=== PATIENT | male | born 1995 | race African-American/Black ===

== ENCOUNTER 2023-06-30 18:45 | Emergency (ER) | payer BC, SELFPAY ==
[2023-06-30 18:54] VITALS: BP 115/60
[2023-06-30 19:28] LABS: % Basophils 0.4 % (0-2); % Eosinophils 0.9 % (0-6); % Immature Granulocytes 0.1 % (0-0.5); % Lymphocytes 47.1 % (20.5-51.1); % Monocytes 8.4 % (1.7-9.3); % Neutrophils 43.1 % (42.2-75.2); Absolute Eosinophils 0.1 10^3/uL (0-0.7); Absolute Lymphocytes 4.4 10^3/uL (1.2-3.4); Absolute Monocytes 0.8 10^3/uL (0.1-0.6); Hematocrit 40.9 % (39.0-52.0); Hemoglobin 14.2 g/dL (13.0-18.0); Mean Corp Hgb Conc. 34.7 g/dL (33.0-37.0); Mean Corpuscular Hgb 30.1 pg (27.0-31.0); Mean Corpuscular Volume 86.7 fL (80.0-94.0); Nucleated Red Blood Cells % 0 % (-); Platelet Count 283 10^3/uL (130-400); Red Blood Cell Count 4.72 10^6/uL (4.70-6.10); Red Cell Dist. Width 12.4 % (11.5-14.5); White Blood Cell Count 9.3 10^3/uL (4.8-10.8)
[2023-06-30 19:43] LABS: ALT (SGPT) 31 U/L (0-50); AST (SGOT) 40 U/L (17-59); Albumin 4.3 g/dl (3.5-5.0); Alkaline Phosphatase 65 U/L (38-126); Blood Urea Nitrogen 10 mg/dl (9-20); Calcium 9.7 mg/dl (8.4-10.2); Carbon Dioxide 29 mmol/L (22-30); Chloride 99 mmol/L (98-107); Glucose 84 mg/dl (70-99); Potassium 3.8 mmol/L (3.5-5.1); Sodium 139 mmol/L (135-145); Total Bilirubin 0.7 mg/dl (0.2-1.3); Total Protein 7.8 g/dl (6.3-8.2); eGFR > 60.00
[2023-06-30 19:52] LABS: Troponin I < 0.012 ng/ml
[2023-06-30 21:53] VITALS: BP 109/73
--- NOTE | 2023-06-30 22:24 | ED.GENMED ---
History of Present Illness
General
Chief Complaint: Cardiac Symptoms
Source: patient and records (records from recent urgent care visit)
Exam Limitations: none
Time Seen by Provider: 06/30/23 22:03
Nursing documentation reviewed up to this point in time: agreed with
Travel History
Have you had any contact with someone who has COVID-19?: No
Do you have any symptoms of coronavirus? Fever > 100 degrees, chills, cough, shortness of breath, sore throat, loss of taste or smell, muscle aches, or headache?: No
History of Present Illness
History of Present Illness:
This is a 27-year-old male with no significant past medical history complains of sharp, stabbing pinpoint right anterior chest pain that began this afternoon around 12 noon. No insightful injury. Right sided chest pain is worse with palpation,
somewhat worse with deep breath. He denies cough nor shortness of breath, no fevers or chills, no nausea nor vomiting, no radiation of the pain, no palpitations, no dizziness or lightheadedness.
He does note somewhat similar chest pain occurring approximately 10 years ago. Resolved after a few days.
He was evaluated at urgent care today, had chest x-ray, EKG performed and was sent to the ED for further evaluation after discovering EKG showed right bundle branch block. Patient has had no previous EKGs.
He was given 4 chewable low-dose aspirin at urgent care and does note mild to moderate improvement in pain.
He states his mother follows with a operations section manager for some unknown cardiac issue but he does not believe there is a family history of coronary artery disease, no family history of previous MIs.
No family history of sudden cardiac .
He takes no medicines on a daily basis.
No recent travel. He denies leg pain or swelling.
No formal exercise but he does remain active on a daily basis and states he walks at least 10,000 steps per day without symptomatology and has had no increase in chest pain nor shortness of breath with activity today.
Past History
Past History
ED Past Medical History: None
ED Past Surgical History: None
Social History
Tobacco: Vaping (Vapes nicotine occasionally)
Alcohol: None
Drug: None
Personal: Single
Living: with family
Employment: Employed
Family History
Family History: Negative Early CAD or Sudden
Phy Exam
Physical Exam
Physical Exam:
GENERAL: 27-year-old male appears his stated age, bright and alert, pleasant, appears in no acute distress. Easily communicative. Vital signs within normal limits.
EYE: anicteric
NECK: Supple, nontender, no meningismus, no significant adenopathy.
ENT: oral mucosa is moist. No rhinorrhea.
CARDIAC: Regular rate and rhythm. no murmur. No rub. There is focal pinpoint tenderness right parasternal region between fourth and fifth and fifth and sixth intercostal space. Palpation exactly reproduces patient's pain complaint. There is no
crepitus nor palpable bony abnormality.
LUNGS: Clear breath sounds bilaterally, no acute respiratory distress, no wheezes/rales/rhonchi
ABDOMEN: Soft, nondistended, without focal tenderness, no r/g, no cvat. normoactive BS.
NEUROLOGICAL: Alert and oriented x3, no focal neuro deficits. Gait is patel and steady.
SKIN: Warm and dry, normal color, skin intact. No rash.
MUSCULOSKELETAL: No C/C/E. peripheral pulses are full and equal b/l. No palpable tenderness.
PSYCH: Normal and appropriate interaction.
Scores
PE Wells Score
Symptoms of DVT: No
No alternative diagnosis better explains the illness: No
Tachycardia with pulse > 100: No
Immobilization (>=3 days) or surgery within previous 4 weeks: No
Prior history of DVT or pulmonary embolism: No
Presence of hemoptysis: No
Presence of malignancy: No
Pulmonary Embolism Risk Score: 0
Probability of PE: Pt is low risk
PERC Rule Criteria
Age <50 years: Yes
HR <100 bpm: Yes
Room air oxygen sat >94%: Yes
History of DVT or PE: No
Recent trauma or surgery: No
Hemoptysis: No
Exogenous estrogen: No
Clinical signs suggestive of DVT: No
: No
Considered low risk for PE: Yes
PERC Score: 0
PE can be excluded by PERC: Yes
Course
Orders/Labs/Results
Orders:
Orders
06/30/23 18:57
Electrocardiogram (*1) Urgent
Reason for Study: Chest Pain
06/30/23 18:58
EKG- Treatment ONCE
06/30/23 19:14
Complete Blood Count/With Diff Urgent
Comprehensive Metabolic Panel Urgent
Troponin I Urgent
06/30/23 22:44
Ibuprofen [Motrin] 600 mg PO NOW STA
Abnormal Lab Results
06/30/23
19:14
Absolute Lymphs (auto) 4.4 H 10^3/uL
(1.2-3.4)
Absolute Monos (auto) 0.8 H 10^3/uL
(0.1-0.6)
06/30/23 19:14
06/30/23 19:14
Vital Signs
Initial and Last Documented VS:
Initial Vital Signs
Temp Pulse Resp BP Pulse Ox
98.6 F 79 20 115/60 99
06/30/23 18:54 06/30/23 18:54 06/30/23 18:54 06/30/23 18:54 06/30/23 18:54
Last Documented Vital Signs
Temp Pulse Resp BP Pulse Ox
98.6 F 68 18 109/73 100
06/30/23 18:54 06/30/23 21:53 06/30/23 21:53 06/30/23 21:53 06/30/23 21:53
MDM/Problems Addressed
Differential Diagnosis Includes:
Patient presents with pinpoint reproducible right anterior chest discomfort that began this afternoon.
No associated symptoms.
No risk factors for thromboembolism.
EKG shows normal sinus rhythm with incomplete right bundle branch block otherwise unremarkable. Similar EKG findings at urgent care today. Other than this no previous tracings.
Labs are unremarkable including negative troponin.
History and exam most consistent with musculoskeletal intercostal chest pain, costochondritis. Other consideration is focal pleurisy.
Will attempt to upload and view chest x-ray film that was performed in urgent care today.
*Radiology
Radiology exam reviewed: preliminary read by ED provider (Chest x-ray from urgent care reviewed. Clear lung stern. Normal heart size. No effusion. Very minimal thoracic scoliosis.)
*Pulse Oximetry
Patient hypoxic: no
*EKG
Interpreted by ED Provider?: Yes
Comparison EKG: no comparison EKG present
Rate: normal
Rhythm: sinus
[place]: normal axis
Interval: normal interval
QRS Pattern: right bundle branch block (Incomplete right bundle branch block)
Ischemia: no ischemia
*Critical Care Note
Total Time (30-74mins, 75-104mins- exclusive of procedures): Not Applicable
Update Note
Update Note:
Chest x-ray from urgent care reviewed, unremarkable showing clear lung stern, normal heart size. No pleural effusion. There is very minimal thoracic scoliosis noted.
As above history and exam most consistent with musculoskeletal chest wall pain.
Recommended trial of NSAID.
Will refer to our PCP request referral service.
Patient plans on following up with his mother's operations section manager as well.
Return precautions discussed.
ED Attending Note
-
Portions of this chart may have been created with voice recognition software.� Occasional wrong word or��sound alike� substitutions may have occurred due to the inherent limitations of voice recognition software.
Discharge Plan
Departure
Patient Disposition: Home (Routine Discharge)
Date of Disposition: 06/30/23
Time of Disposition: 22:53
Patient with high blood pressure during this ER visit?: No
Condition: Good
Discharge Problem:
Costochondritis, acute, Right-sided chest wall pain, Right bundle branch block (RBBB) determined by electrocardiography
Instructions: Costochondritis (DC)
Prescriptions:
New
ibuprofen 600 mg tablet
600 mg PO QID PRN (Reason: fever or pain) Qty: 20 0RF
Referrals:
[facility] [Outside] - Call in 1-3 days for appt
Interventions
Interventions:
*Risk Screen - Suicide Last Done: 06/30/23 18:54
*General Assessment Last Done: 06/30/23 18:54
*Neglect/Abuse Screening Last Done: 06/30/23 18:54
ED- Fall Risk Assessment Last Done: 06/30/23 21:51
*ED COVID-19 Vaccine History Last Done: 06/30/23 21:51
ED- Pulmonary Assessment Last Done: 06/30/23 21:51
ED- Cardiac Assessment Last Done: 06/30/23 21:51
[2023-06-30] MEDS: MOTRIN 600 MG PO (22:55)
== END 2023-06-30 23:15 | disposition home or self-care (01) ==
LOC: EMR 18:45
PROVIDERS: Emergency Medicine; EMERGENCY PHYSICIAN Emergency Medicine
DX: M94.0 Chondrocostal junction syndrome [Tietze] (principal); I45.10 Unspecified right bundle-branch block; F17.290 Nicotine dependence, other tobacco product, uncomplicated
CPT/HCPCS: 99284; 80053; 84484; 85025; 93005